=== PATIENT | female | born 1950 | race Caucasian/White ===

== ENCOUNTER 2016-12-17 14:19 | Emergency (ER) | payer MEDICARE ==
[2016-12-17 14:27] VITALS: BP 161/103; PULSE 83; RESP 18; TEMP 97.6; O2SAT 98
[2016-12-17] MEDS: ASPIRIN 81 MG CHEW TAB PO ONE (14:43)
[2016-12-17 14:44] LABS: HEMATOCRIT 45.5 % (35.0-46.0); MEAN CORPUSCULAR HGB CONC 34.5 % (32.0-36.0); PLATELET COUNT 234 TH/MM3 (150-450); RED BLOOD COUNT 5.05 MIL/MM3 (4.00-5.30); RED CELL DISTRIBUTION WIDTH 14.6 % (11.6-17.2); WHITE BLOOD COUNT 6.6 TH/MM3 (4.0-11.0)
[2016-12-17] MEDS: ALUMINUM/MAGNESIUM/SIMETH 30 ML CUP PO ONE (14:44)
[2016-12-17] MEDS: LIDOCAINE VISCOUS 2% SOLN 15 ML UDC PO ONE (14:44)
[2016-12-17] MEDS ORDERED: SODIUM CHLORIDE 0.9% FLUSH 10 ML FLUSH IV FLUSH PRN (14:45)
[2016-12-17] MEDS: FAMOTIDINE 20 MG/2 ML VIAL IV PUSH ONE (14:49)
[2016-12-17 14:51] LABS: HEMO FLAGS AUTO DIFF
[2016-12-17] MEDS: PANTOPRAZOLE SODIUM 40 MG VIAL IVP ONE (14:53)
--- NOTE | 2016-12-17 14:58 | PD ---
HPI Chief Complaint: Chest Pain Time Seen by Provider: 14:32 Travel History International Travel<30 days: No Contact w/Intl Traveler<30days: No Traveled to known affect area: No History of Present Illness HPI Patient presents with chest pain since 1:00. Smokes occasionally, denies any diaphoresis shortness of breath radiation. Nondiabetic. Positive family history. No personal medical history. Reports early satiety. Aggravated with meals. Denies any urinary symptoms. Reports occasional loose stools. History of cholecystectomy. PFSH Past Medical History Cancer: Yes (BREAST 30 YEARS AGO) Influenza Vaccination: Yes ?: Not Past Surgical History Cholecystectomy: Yes Genitourinary Surgery: Yes (BLADDER) Hysterectomy: Yes (PARTIAL) Mastectomy: Yes (LEFT) Social History Alcohol Use: No Tobacco Use: No Substance Use: No Allergies-Medications (Allergen,Severity, Reaction): Coded Allergies: No Known Allergies (Unverified , 12/17/16) Reported Meds & Prescriptions Reported Meds & Active Scripts Active No Active Prescriptions or Reported Medications Review of Systems General / Constitutional: No: Fever Eyes: No: Visual changes HENT: No: Headaches Cardiovascular: Positive: Chest Pain or Discomfort Respiratory: No: Shortness of Breath Gastrointestinal: No: Abdominal Pain Genitourinary: No: Dysuria Musculoskeletal: No: Pain Skin: No Rash Neurologic: No: Weakness Psychiatric: No: Depression Endocrine: No: Polydipsia Hematologic/Lymphatic: No: Easy Bruising Physical Exam Narrative GENERAL: Well-nourished, well-developed patient. SKIN: Focused skin assessment warm/dry. HEAD: Normocephalic. EYES: No scleral icterus. No injection or drainage. NECK: Supple, trachea midline. No JVD or lymphadenopathy. CARDIOVASCULAR: Regular rate and rhythm without murmurs, gallops, or rubs. RESPIRATORY: Breath sounds equal bilaterally. No accessory muscle use. GASTROINTESTINAL: Abdomen soft, pain is localized to the left upper quadrant with tenderness to deep palpation, nondistended. MUSCULOSKELETAL: No cyanosis, or edema. BACK: Nontender without obvious deformity. No CVA tenderness. Data Data Last Documented VS Vital Signs Date Time Temp Pulse Resp B/P Pulse Ox O2 Delivery O2 Flow Rate FiO2 12/17/16 15:07 97 12/17/16 15:07 70 147/80 12/17/16 15:06 16 12/17/16 14:27 97.6 Orders Electrocardiogram (4/8/17 14:32) Ckmb (Isoenzyme) Profile (12/17/16 14:32) Complete Blood Count With Diff (12/17/16 14:32) Comprehensive Metabolic Panel (12/17/16 14:32) Magnesium (Mg) (12/17/16 14:32) Prothrombin Time / Inr (Pt) (12/17/16 14:32) Act Partial Throm Time (Ptt) (12/17/16 14:32) Troponin I (12/17/16 14:32) Lipase (12/17/16 14:32) Ecg Monitoring (12/17/16 14:32) Bilateral Bp Monitoring (12/17/16 14:32) Iv Access Insert/Monitor (12/17/16 14:32) Oximetry (12/17/16 14:32) Oxygen Administration (12/17/16 14:32) Aspirin Chew (Aspirin Chew) (12/17/16 14:45) Pantoprazole Inj (Protonix Inj) (12/17/16 14:45) Sodium Chloride 0.9% Flush (Ns Flush) (12/17/16 14:45) Famotidine Inj (Pepcid Inj) (12/17/16 14:45) Al-Mag Hy-Si 40-40-4 Mg/Ml Liq (Mag-Al P (12/17/16 14:45) Lidocaine 2% Viscous (Xylocaine 2% Visco (12/17/16 14:45) Labs Laboratory Tests Test 12/17/16 12/17/16 14:30 15:00 White Blood Count 6.6 TH/MM3 Red Blood Count 5.05 MIL/MM3 Hemoglobin 15.7 GM/DL Hematocrit 45.5 % Mean Corpuscular Volume 90.0 FL Mean Corpuscular Hemoglobin 31.0 PG Mean Corpuscular Hemoglobin 34.5 % Concent Red Cell Distribution Width 14.6 % Platelet Count 234 TH/MM3 Mean Platelet Volume 8.3 FL Neutrophils (%) (Auto) % Lymphocytes (%) (Auto) % Monocytes (%) (Auto) % Eosinophils (%) (Auto) % Basophils (%) (Auto) % Neutrophils # (Auto) TH/MM3 Lymphocytes # (Auto) TH/MM3 Monocytes # (Auto) TH/MM3 Eosinophils # (Auto) TH/MM3 Basophils # (Auto) TH/MM3 CBC Comment AUTO DIFF Differential Total Cells 100 Counted Neutrophils % (Manual) 54 % Band Neutrophils % 4 % Lymphocytes % 31 % Monocytes % 6 % Eosinophils % 3 % Basophils % 2 % Neutrophils # (Manual) 3.8 TH/MM3 Differential Comment FINAL DIFF MANUAL Platelet Estimate NORMAL Platelet Morphology Comment NORMAL Red Cell Morphology Comment NORMAL Prothrombin Time 10.2 SEC Prothromb Time International 0.9 RATIO Ratio Activated Partial 26.8 SEC Thromboplast Time Sodium Level 144 MEQ/L Potassium Level 4.0 MEQ/L Chloride Level 110 MEQ/L Carbon Dioxide Level 26.4 MEQ/L Anion Gap 8 MEQ/L Blood Urea Nitrogen 12 MG/DL Creatinine 0.92 MG/DL Estimat Glomerular Filtration 61 ML/MIN Rate Random Glucose 118 MG/DL Calcium Level 8.5 MG/DL Magnesium Level 2.3 MG/DL Total Bilirubin 0.3 MG/DL Aspartate Amino Transf 15 U/L (AST/SGOT) Alanine Aminotransferase 18 U/L (ALT/SGPT) Alkaline Phosphatase 72 U/L Total Creatine Kinase 99 U/L Troponin I LESS THAN 0.02 NG/ML Total Protein 7.1 GM/DL Albumin 3.6 GM/DL Lipase 262 U/L [facility] Medical Decision Making Medical Screen Exam Complete: Yes Emergency Medical Condition: Yes Differential Diagnosis Pancreatitis, gastritis, gastric or duodenal ulcer, acute coronary syndrome Narrative Course Assessment and plan discussed with patient at bedside. Discomfort improved with GI cocktail. EKG reveals sinus rhythm rate of 82. Cardiac enzymes are negative. Diagnosis Primary Impression: Gastritis Qualified Code: K29.00 - Acute gastritis, presence of bleeding unspecified, unspecified gastritis type Patient Instructions: General Instructions Additional Instructions: Encouraged to avoid aggravating factors of reflux including but not limited to alcohol tobacco late largemeals and weight. Encouraged a daily enteric-coated aspirin for mildly elevated hemoglobin. Encouraged follow-up with primary care provider. Med/Other Pt SpecificInfo: Prescription(s) given Scripts Pantoprazole (Protonix)40 Mg Tab40 Mg PO BID #30 TAB Ref 0 Prov:Rodrick Hutton MD 12/17/16 Ranitidine (Zantac)150 Mg Zhw003 Mg PO BID #30 TAB Ref 0 Prov:Rodrick Hutton MD 12/17/16 Disposition: 01 DISCHARGE HOME Condition: Good Rodrick Hutton MD Dec 17, 2016 14:57
[2016-12-17 15:06] VITALS: BP 142/80; PULSE 70; RESP 16; O2SAT 97
[2016-12-17 15:07] VITALS: BP 147/80; PULSE 70; O2SAT 97
[2016-12-17 15:14] LABS: BANDS 4 % (0-6); BASOPHILS 2 % (0-2); EOSINOPHILS 3 % (0-4); NEUTROPHIL # MANUAL DIFF 3.8 TH/MM3 (1.8-7.7); PLATELET ESTIMATE SMEAR NORMAL (NORMAL); PLATELET MORPHOLOGY NORMAL (NORMAL); POLYS (SEG NEUTROPHILS) 54 % (16-70); SCAN/DIFF FINAL DIFF MANUAL; WBC DIFF SAMPLE 100
[2016-12-17 15:20] LABS: CHLORIDE 110 MEQ/L (98-107); SODIUM (NA) 144 MEQ/L (136-145)
[2016-12-17 15:25] LABS: ANION GAP 8 MEQ/L (5-15); APTT (PATIENT) 26.8 SEC (24.3-30.1); BICARBONATE 26.4 MEQ/L (21.0-32.0); INTERNATIONAL NORMALIZED RATIO 0.9 RATIO; PROTHROMBIN TIME - PATIENT 10.2 SEC (9.8-11.6)
[2016-12-17 15:26] LABS: BLOOD UREA NITROGEN 12 MG/DL (7-18); MAGNESIUM 2.3 MG/DL (1.5-2.5)
[2016-12-17 15:28] LABS: ALT (GPT) 18 U/L (10-53); AST (GOT) 15 U/L (15-37); GLOMERULAR FILTRATION RATE 61 ML/MIN (>89)
[2016-12-17 15:30] LABS: TOTAL BILIRUBIN ADULT 0.3 MG/DL (0.2-1.0)
[2016-12-17 15:31] LABS: ALKALINE PHOSPHATASE 72 U/L (45-117)
[2016-12-17 15:38] LABS: CREATINE KINASE 99 U/L (26-192)
[2016-12-17] MEDS ORDERED: ZANT150T2 PO (15:57)
[2016-12-17] MEDS ORDERED: PROT40TA PO (15:57)
--- NOTE | 2016-12-18 10:27 | EKG ---
Date Performed: 12/17/2016 Time Performed: 14:23:14 PTAGE: 66 years EKG: Sinus rhythm Possible left atrial abnormality Possible anteroseptal infarct - age undetermined Abnormal ECG NO PREVIOUS TRACING DOCTOR: Deedee David Interpretating Date/Time 12/18/2016 10:25:01
== END 2016-12-17 16:18 | disposition home or self-care (01) ==
LOC: PHED 14:19
DX: K29.00 Acute gastritis without bleeding (principal); R07.9 Chest pain, unspecified; F17.200 Nicotine dependence, unspecified, uncomplicated
CPT/HCPCS: 80053; 82550; 83690; 83735; 84484; 85007; 85027; 85610; 85730; 93005; 96374; 96375; 99285; C9113